=== PATIENT | female | born 1955 | race Caucasian/White ===

== ENCOUNTER 2020-07-09 22:56 | Inpatient (IN) | payer OTHER ==
[2020-07-09 23:02] VITALS: BMI 43.8
[2020-07-09] MEDS ORDERED: LACTATED RINGERS SOLUTION 1000 ML INFUS.BAG IV ONE (23:43)
[2020-07-10 00:13] LABS: VENOUS BASE EXCESS -24.4 mmol/L (-2-2); VENOUS O2 SATURATION 77.2 % (70-80); VENOUS PCO2 44.6 mmHg (38-52)
[2020-07-10 00:20] LABS: BASO % 0.7 % (0-2.0); EOS % 0.1 % (0-4.5); HEMATOCRIT 49.5 % (32.4-45.2); HEMOGLOBIN 15.5 GM/dL (10.7-15.3); LYMPH % 13.6 % (8-40); MCH 27.6 pg (25.7-33.7); MCHC 31.3 g/dl (32.0-36.0); MEAN CELL VOLUME 88.3 fl (80-96); MEAN PLT VOLUME 12.9 fl (7.5-11.1); MONO % 11.2 % (3.8-10.2); NEUT % 74.4 % (42.8-82.8); PLATELET COUNT 148 K/MM3 (134-434); RDW 17.5 % (11.6-15.6); WHITE BLOOD COUNT 8.8 K/mm3 (4.0-10.0)
[2020-07-10 00:33] LABS: VENOUS PH 6.904 (7.310-7.410)
[2020-07-10 00:37] LABS: POTASSIUM 5.2 mmol/L (3.5-5.1)
[2020-07-10 00:39] LABS: ALBUMIN 3.7 g/dl (3.4-5.0); BLOOD UREA NITROGEN 55.3 mg/dL (7-18); CALCIUM 10.2 mg/dL (8.5-10.1)
[2020-07-10 00:44] LABS: BILIRUBIN,TOTAL 0.5 mg/dL (0.2-1); TOT PROT 7.7 g/dl (6.4-8.2)
[2020-07-10] MEDS ORDERED: INSULIN REGULAR HUMAN 100 UNITS/ML *VIAL* (FOR IVP) IVPUSH ONE (00:46)
[2020-07-10] MEDS ORDERED: INSULIN REGULAR HUMAN 100 UNITS/ML *VIAL IVPUSH ONE (00:49)
[2020-07-10] MEDS ORDERED: SODIUM CHLORIDE 0.45%/POT 20 MEQ/1,000 ML INFUS.BAG IV SCH (01:00)
[2020-07-10] MEDS ORDERED: INSULIN REGULAR 100 UNITS in SODIUM CHLORIDE 99 ML IVPB SCH (01:00)
[2020-07-10 02:02] LABS: BLOOD UREA NITROGEN 54.8 mg/dL (7-18); CALCIUM 10.1 mg/dL (8.5-10.1)
[2020-07-10 02:14] LABS: POTASSIUM 5.2 mmol/L (3.5-5.1)
[2020-07-10] MEDS: HEPARIN NA (PORCINE) 5,000 UNITS/ML 1ML VIAL SQ SCH ×3 (06:49→23:02)
[2020-07-10] MEDS ORDERED: DEXTROSE 10%-WATER 500 ML INFUS.BAG IV ONE (07:46)
[2020-07-10 07:50] LABS: BASO % 0.9 % (0-2.0); EOS % 0.2 % (0-4.5); HEMATOCRIT 46.4 % (32.4-45.2); HEMOGLOBIN 15.3 GM/dL (10.7-15.3); LYMPH % 22.4 % (8-40); MCHC 32.9 g/dl (32.0-36.0); MEAN PLT VOLUME 12.5 fl (7.5-11.1); MONO % 13.1 % (3.8-10.2); NEUT % 63.4 % (42.8-82.8); PLATELET COUNT 155 K/MM3 (134-434); RBC 5.46 M/mm3 (3.60-5.2); RDW 16.5 % (11.6-15.6); WHITE BLOOD COUNT 9.8 K/mm3 (4.0-10.0)
[2020-07-10 08:04] LABS: INR 0.95 (0.83-1.09)
[2020-07-10 08:09] LABS: POTASSIUM 4.2 mmol/L (3.5-5.1)
[2020-07-10 08:13] LABS: CALCIUM 10.1 mg/dL (8.5-10.1)
[2020-07-10 08:14] LABS: ALBUMIN 3.6 g/dl (3.4-5.0); BLOOD UREA NITROGEN 55.7 mg/dL (7-18); MAGNESIUM 3.5 mg/dL (1.8-2.4)
[2020-07-10] MEDS: INSULIN REGULAR 100 UNITS in SODIUM CHLORIDE 99 ML IVPB SCH ×4 (08:16→18:41)
[2020-07-10 08:17] LABS: CREATININE 1.8 mg/dL (0.55-1.3); PHOSPHOROUS 1.7 mg/dL (2.5-4.9)
[2020-07-10 08:18] LABS: BILIRUBIN,TOTAL 0.6 mg/dL (0.2-1); TOT PROT 7.2 g/dl (6.4-8.2)
[2020-07-10] MEDS: D5-1/2NS+20 MEQ KCL - 20 MEQ/1,000 ML INFUS.BAG IV SCH ×2 (08:20→18:46)
[2020-07-10 08:33] LABS: ACTIVATED PTT > 400.0 SECONDS (25.2-36.5)
[2020-07-10] MEDS ORDERED: POTASSIUM PHOSPHATE 15 MM in DEXTROSE 5%-WATER - 250 ML IVPB ONE (10:00)
[2020-07-10 10:56] LABS: HEMATOCRIT 48.2 % (32.4-45.2); HEMOGLOBIN 15.6 GM/dL (10.7-15.3); MCH 27.7 pg (25.7-33.7); MCHC 32.3 g/dl (32.0-36.0); MEAN CELL VOLUME 85.7 fl (80-96); MEAN PLT VOLUME 12.3 fl (7.5-11.1); PLATELET COUNT 157 K/MM3 (134-434); RBC 5.63 M/mm3 (3.60-5.2); RDW 16.5 % (11.6-15.6); WHITE BLOOD COUNT 9.1 K/mm3 (4.0-10.0)
[2020-07-10 11:10] LABS: INR 1.07 (0.83-1.09); PROTHROMBIN TIME (PATIENT) 13.1 SEC (9.7-13.0)
[2020-07-10 11:12] LABS: ACTIVATED PTT 24.5 SECONDS (25.2-36.5)
[2020-07-10 11:16] LABS: CHLORIDE 124 mmol/L (98-107); POTASSIUM 4.8 mmol/L (3.5-5.1); SODIUM 160 mmol/L (136-145)
[2020-07-10 11:19] LABS: ALBUMIN 3.6 g/dl (3.4-5.0); ANION GAP 11 MMOL/L (8-16); BLOOD UREA NITROGEN 56.6 mg/dL (7-18); CALCIUM 9.9 mg/dL (8.5-10.1); CO2 25 mmol/L (21-32)
[2020-07-10 11:20] LABS: GLUCOSE,RANDOM 163 mg/dL (74-106); MAGNESIUM 3.4 mg/dL (1.8-2.4)
[2020-07-10 11:22] LABS: BILIRUBIN,DIRECT 0.1 mg/dL (0.0-0.2); SGOT/AST 15 U/L (15-37); SGPT/ALT 14 U/L (13-61)
[2020-07-10 11:23] LABS: CREATININE 1.9 mg/dL (0.55-1.3)
[2020-07-10 11:24] LABS: BILIRUBIN,TOTAL 0.4 mg/dL (0.2-1); TOT PROT 7.4 g/dl (6.4-8.2)
[2020-07-10 11:25] LABS: ALK PHOS 86 U/L (45-117)
[2020-07-10 11:26] LABS: LDH 241 U/L (84-246)
[2020-07-10] MEDS: ONDANSETRON 4 MG/2 ML VIAL IVPUSH PRN (18:46)
[2020-07-10 18:49] LABS: EPI CELLS 29 /uL (0-25.1); HYALINE CASTS 3 /uL (0-3.1); URINE APPEARANCE CLEAR; URINE BACTERIA 1010 /uL (0-1359); URINE BILIRUBIN NEGATIVE (NEGATIVE); URINE COLOR YELLOW; URINE GLUCOSE (UA) 3+ (NEGATIVE); URINE KETONE 1+ (NEGATIVE); URINE LEUK ESTERASE NEGATIVE (NEGATIVE); URINE NITRITE NEGATIVE (NEGATIVE); URINE PROTEIN TRACE (NEGATIVE); URINE RBC 55 /uL (0-23.9); URINE UROBILINOGEN 0.2 mg/dL (0.2-1.0); URINE WBC 26 /uL (0-25.8)
[2020-07-10 19:44] LABS: VENOUS BASE EXCESS -0.2 mmol/L (-2-2); VENOUS PCO2 42.4 mmHg (38-52); VENOUS PH 7.387 (7.310-7.410)
[2020-07-10 20:11] LABS: POTASSIUM 4.7 mmol/L (3.5-5.1)
[2020-07-10 20:12] LABS: CALCIUM 9.1 mg/dL (8.5-10.1)
[2020-07-10 20:13] LABS: BLOOD UREA NITROGEN 53.8 mg/dL (7-18)
[2020-07-10 20:16] LABS: CREATININE 1.8 mg/dL (0.55-1.3)
[2020-07-10] MEDS ORDERED: CHLORHEXIDINE GLUCONATE 4% CLEANSER FOR DECOLONIZATION TP SCH (22:00)
[2020-07-10] MEDS: MUPIROCIN 2% TOPICAL OINTMENT FOR DECOLONIZATION NS SCH (23:02)
[2020-07-11] MEDS: HEPARIN NA (PORCINE) 5,000 UNITS/ML 1ML VIAL SQ SCH ×3 (06:23→21:36)
[2020-07-11] MEDS ORDERED: INSULIN (LEVEMIR) 100 UNITS/ML UNITS SQ ONE (08:42)
[2020-07-11] MEDS: D5-1/2NS+20 MEQ KCL - 20 MEQ/1,000 ML INFUS.BAG IV SCH (09:24)
[2020-07-11] MEDS: INSULIN REGULAR 100 UNITS in SODIUM CHLORIDE 99 ML IVPB SCH (09:25)
[2020-07-11 09:30] LABS: HEMATOCRIT 43.9 % (32.4-45.2); HEMOGLOBIN 14.2 GM/dL (10.7-15.3); MCH 27.8 pg (25.7-33.7); MCHC 32.3 g/dl (32.0-36.0); MEAN CELL VOLUME 86.2 fl (80-96); MEAN PLT VOLUME 11.7 fl (7.5-11.1); PLATELET COUNT 109 K/MM3 (134-434); RBC 5.09 M/mm3 (3.60-5.2); RDW 16.6 % (11.6-15.6); WHITE BLOOD COUNT 7.2 K/mm3 (4.0-10.0)
[2020-07-11 09:42] LABS: POTASSIUM 4.2 mmol/L (3.5-5.1)
[2020-07-11 09:52] LABS: CALCIUM 8.7 mg/dL (8.5-10.1)
[2020-07-11 09:53] LABS: BLOOD UREA NITROGEN 44.4 mg/dL (7-18); MAGNESIUM 2.8 mg/dL (1.8-2.4)
[2020-07-11 09:56] LABS: CREATININE 1.6 mg/dL (0.55-1.3); PHOSPHOROUS 1.2 mg/dL (2.5-4.9)
[2020-07-11] MEDS ORDERED: INSULIN SLIDING SCALE (NOVOLOG) 1 VIAL SQ SCH (11:00)
[2020-07-11] MEDS: MUPIROCIN 2% TOPICAL OINTMENT FOR DECOLONIZATION NS SCH ×2 (12:31→21:36)
[2020-07-11] MEDS: ONDANSETRON 4 MG/2 ML VIAL IVPUSH PRN (14:25)
[2020-07-11] MEDS ORDERED: SODIUM CHLORIDE 0.45% 1,000 ML IV SCH (14:45)
[2020-07-11] MEDS: DEXTROSE 5%-WATER - 1,000 ML IV SCH ×2 (15:14→21:35)
[2020-07-11] MEDS ORDERED: ONDANSETRON 4 MG/2 ML VIAL IVPUSH PRN (15:15)
[2020-07-11] MEDS: INSULIN SLIDING SCALE (NOVOLOG) 1 VIAL SQ SCH ×2 (16:53→21:36)
[2020-07-11] MEDS: INSULIN (LEVEMIR) 100 UNITS/ML UNITS SQ SCH (21:36)
[2020-07-11] MEDS: CHLORHEXIDINE GLUCONATE 4% CLEANSER FOR DECOLONIZATION TP SCH (21:36)
[2020-07-11] MEDS ORDERED: INSULIN (LEVEMIR) 100 UNITS/ML UNITS SQ SCH (22:00)
[2020-07-12] MEDS: DEXTROSE 5%-WATER - 1,000 ML IV SCH (06:13)
[2020-07-12] MEDS: INSULIN SLIDING SCALE (NOVOLOG) 1 VIAL SQ SCH ×4 (06:13→21:25)
[2020-07-12] MEDS: HEPARIN NA (PORCINE) 5,000 UNITS/ML 1ML VIAL SQ SCH (06:14)
[2020-07-12 07:10] LABS: HEMATOCRIT 40.7 % (32.4-45.2); HEMOGLOBIN 13.2 GM/dL (10.7-15.3); MCHC 32.5 g/dl (32.0-36.0); MEAN CELL VOLUME 86.1 fl (80-96); MEAN PLT VOLUME 11.7 fl (7.5-11.1); PLATELET COUNT 84 K/MM3 (134-434); RBC 4.72 M/mm3 (3.60-5.2); RDW 16.5 % (11.6-15.6); WHITE BLOOD COUNT 6.3 K/mm3 (4.0-10.0)
[2020-07-12 07:21] LABS: POTASSIUM 3.8 mmol/L (3.5-5.1)
[2020-07-12 07:26] LABS: CALCIUM 8.2 mg/dL (8.5-10.1)
[2020-07-12 07:27] LABS: ALBUMIN 2.8 g/dl (3.4-5.0); BLOOD UREA NITROGEN 30.5 mg/dL (7-18); MAGNESIUM 2.5 mg/dL (1.8-2.4)
[2020-07-12 07:30] LABS: CREATININE 1.2 mg/dL (0.55-1.3); PHOSPHOROUS 2.2 mg/dL (2.5-4.9)
[2020-07-12 07:31] LABS: BILIRUBIN,TOTAL 0.7 mg/dL (0.2-1); TOT PROT 5.9 g/dl (6.4-8.2)
[2020-07-12] MEDS: MUPIROCIN 2% TOPICAL OINTMENT FOR DECOLONIZATION NS SCH ×2 (09:07→21:20)
[2020-07-12] MEDS ORDERED: LACTATED RINGERS SOLUTION 1,000 ML/1,000 ML INFUS.BAG IV SCH (14:00)
[2020-07-12] MEDS ORDERED: SODIUM CHLORIDE 0.45% 1,000 ML IV SCH (14:15)
[2020-07-12] MEDS: SODIUM CHLORIDE 0.45% 1,000 ML IV SCH (16:37)
[2020-07-12] MEDS: CHLORHEXIDINE GLUCONATE 4% CLEANSER FOR DECOLONIZATION TP SCH (21:20)
[2020-07-12] MEDS: INSULIN (LEVEMIR) 100 UNITS/ML UNITS SQ SCH (21:24)
[2020-07-13 01:43] LABS: POTASSIUM 3.6 mmol/L (3.5-5.1)
[2020-07-13 01:46] LABS: ALBUMIN 2.7 g/dl (3.4-5.0); BLOOD UREA NITROGEN 20.8 mg/dL (7-18); CALCIUM 8.1 mg/dL (8.5-10.1)
[2020-07-13] MEDS: SODIUM CHLORIDE 0.45% 1,000 ML IV SCH ×2 (01:46→21:29)
[2020-07-13 01:50] LABS: BILIRUBIN,TOTAL 0.6 mg/dL (0.2-1); TOT PROT 5.6 g/dl (6.4-8.2)
[2020-07-13] MEDS: INSULIN SLIDING SCALE (NOVOLOG) 1 VIAL SQ SCH (06:49)
[2020-07-13] MEDS ORDERED: TRIMETHOBENZAMIDE HCL 300 MG CAPSULE PO PRN (07:50)
[2020-07-13 10:11] LABS: BASO % 0.6 % (0-2.0); EOS % 4.9 % (0-4.5); HEMATOCRIT 42.7 % (32.4-45.2); HEMOGLOBIN 13.9 GM/dL (10.7-15.3); LYMPH % 33.8 % (8-40); MCHC 32.5 g/dl (32.0-36.0); MEAN CELL VOLUME 86.2 fl (80-96); MEAN PLT VOLUME 11.9 fl (7.5-11.1); MONO % 13.5 % (3.8-10.2); NEUT % 47.2 % (42.8-82.8); PLATELET COUNT 84 K/MM3 (134-434); RBC 4.96 M/mm3 (3.60-5.2); RDW 16.5 % (11.6-15.6); WHITE BLOOD COUNT 4.8 K/mm3 (4.0-10.0)
[2020-07-13 10:24] LABS: POTASSIUM 4.5 mmol/L (3.5-5.1)
[2020-07-13 10:33] LABS: CALCIUM 8.6 mg/dL (8.5-10.1)
[2020-07-13 10:34] LABS: ALBUMIN 2.9 g/dl (3.4-5.0); BLOOD UREA NITROGEN 17.1 mg/dL (7-18)
[2020-07-13] MEDS: INSULIN (LEVEMIR) 100 UNITS/ML UNITS SQ SCH ×2 (10:34→21:35)
[2020-07-13] MEDS: MUPIROCIN 2% TOPICAL OINTMENT FOR DECOLONIZATION NS SCH ×2 (10:34→21:30)
[2020-07-13 10:38] LABS: BILIRUBIN,TOTAL 0.9 mg/dL (0.2-1); TOT PROT 6.3 g/dl (6.4-8.2)
[2020-07-13 11:06] LABS: PLATELET ESTIMATE DECREASED
[2020-07-13] MEDS: DOCUSATE SODIUM 100 MG CAPSULE (FP) PO SCH ×2 (14:18→21:34)
[2020-07-13] MEDS: CHLORHEXIDINE GLUCONATE 4% CLEANSER FOR DECOLONIZATION TP SCH (21:30)
[2020-07-13] MEDS: SENNOSIDES 8.6MG TABLET (FP) PO SCH (21:34)
[2020-07-14] MEDS: INSULIN (LEVEMIR) 100 UNITS/ML UNITS SQ SCH (06:12)
[2020-07-14 06:35] LABS: BASO % 0.5 % (0-2.0); EOS % 4.6 % (0-4.5); HEMOGLOBIN 13.1 GM/dL (10.7-15.3); LYMPH % 31.9 % (8-40); MCH 27.8 pg (25.7-33.7); MCHC 31.9 g/dl (32.0-36.0); MEAN PLT VOLUME 11.7 fl (7.5-11.1); MONO % 13.6 % (3.8-10.2); NEUT % 49.4 % (42.8-82.8); PLATELET COUNT 64 K/MM3 (134-434); RBC 4.71 M/mm3 (3.60-5.2); RDW 16.1 % (11.6-15.6); WHITE BLOOD COUNT 4.4 K/mm3 (4.0-10.0)
[2020-07-14 06:46] LABS: POTASSIUM 3.9 mmol/L (3.5-5.1)
[2020-07-14 06:50] LABS: BLOOD UREA NITROGEN 15.5 mg/dL (7-18); CALCIUM 8.3 mg/dL (8.5-10.1); MAGNESIUM 2.2 mg/dL (1.8-2.4)
[2020-07-14 06:53] LABS: CREATININE 0.8 mg/dL (0.55-1.3); PHOSPHOROUS 2.5 mg/dL (2.5-4.9)
[2020-07-14] MEDS: MUPIROCIN 2% TOPICAL OINTMENT FOR DECOLONIZATION NS SCH ×2 (09:11→21:12)
[2020-07-14] MEDS: DOCUSATE SODIUM 100 MG CAPSULE (FP) PO SCH ×2 (10:41→21:11)
[2020-07-14] MEDS: MULTIVITAMINS (DAILY MVI) TABLET (FP) PO SCH (10:41)
[2020-07-14] MEDS: SODIUM CHLORIDE 0.45% 1,000 ML IV SCH (20:15)
[2020-07-14] MEDS: CHLORHEXIDINE GLUCONATE 4% CLEANSER FOR DECOLONIZATION TP SCH (21:12)
[2020-07-14] MEDS: ATORVASTATIN CA 20 MG TABLET (FP) PO SCH (21:12)
[2020-07-14] MEDS: INSULIN SLIDING SCALE (NOVOLOG) 1 VIAL SQ SCH (21:12)
[2020-07-14] MEDS: SENNOSIDES 8.6MG TABLET (FP) PO SCH (21:17)
[2020-07-15] MEDS: INSULIN SLIDING SCALE (NOVOLOG) 1 VIAL SQ SCH ×4 (06:20→21:24)
[2020-07-15] MEDS: LEVOTHYROXINE NA 25 MCG TABLET (FP) PO SCH (06:21)
[2020-07-15] MEDS: metFORMIN HCL 500 MG TABLET (FP) PO SCH ×2 (06:21→18:15)
[2020-07-15] MEDS: INSULIN (NOVOLOG MIX 70/30) 100 UNITS/ML MDV SQ SCH ×2 (06:21→18:15)
[2020-07-15 07:00] LABS: POTASSIUM 3.8 mmol/L (3.5-5.1)
[2020-07-15 07:02] LABS: CALCIUM 8.4 mg/dL (8.5-10.1)
[2020-07-15 07:06] LABS: CREATININE 0.9 mg/dL (0.55-1.3)
[2020-07-15 07:11] LABS: BLOOD UREA NITROGEN 13.2 mg/dL (7-18)
[2020-07-15 07:18] LABS: HEMATOCRIT 42.9 % (32.4-45.2); MCH 28.1 pg (25.7-33.7); MCHC 32.6 g/dl (32.0-36.0); MEAN CELL VOLUME 86.2 fl (80-96); MEAN PLT VOLUME 11.4 fl (7.5-11.1); PLATELET COUNT 83 K/MM3 (134-434); RBC 4.98 M/mm3 (3.60-5.2); RDW 16.2 % (11.6-15.6); WHITE BLOOD COUNT 5.7 K/mm3 (4.0-10.0)
[2020-07-15] MEDS: PANTOPRAZOLE 40 MG TABLET PO SCH (09:56)
[2020-07-15] MEDS: DOCUSATE SODIUM 100 MG CAPSULE (FP) PO SCH ×2 (09:56→21:24)
[2020-07-15] MEDS: MULTIVITAMINS (DAILY MVI) TABLET (FP) PO SCH (09:56)
[2020-07-15] MEDS: SODIUM CHLORIDE 0.45% 1,000 ML IV SCH ×2 (19:08→19:12)
[2020-07-15] MEDS: ATORVASTATIN CA 20 MG TABLET (FP) PO SCH (21:23)
[2020-07-15] MEDS: SENNOSIDES 8.6MG TABLET (FP) PO SCH (21:24)
[2020-07-16] MEDS: LEVOTHYROXINE NA 25 MCG TABLET (FP) PO SCH (06:56)
[2020-07-16] MEDS: metFORMIN HCL 500 MG TABLET (FP) PO SCH ×2 (06:56→16:27)
[2020-07-16] MEDS: INSULIN SLIDING SCALE (NOVOLOG) 1 VIAL SQ SCH ×3 (06:56→16:28)
[2020-07-16] MEDS: INSULIN (NOVOLOG MIX 70/30) 100 UNITS/ML MDV SQ SCH ×2 (06:57→16:34)
[2020-07-16 08:19] LABS: HEMATOCRIT 42.8 % (32.4-45.2); HEMOGLOBIN 14.2 GM/dL (10.7-15.3); MCH 28.3 pg (25.7-33.7); MCHC 33.2 g/dl (32.0-36.0); MEAN CELL VOLUME 85.2 fl (80-96); MEAN PLT VOLUME 11.3 fl (7.5-11.1); PLATELET COUNT 86 K/MM3 (134-434); RBC 5.02 M/mm3 (3.60-5.2); WHITE BLOOD COUNT 6.1 K/mm3 (4.0-10.0)
[2020-07-16 08:40] LABS: POTASSIUM 3.7 mmol/L (3.5-5.1)
[2020-07-16 08:44] LABS: CALCIUM 8.7 mg/dL (8.5-10.1)
[2020-07-16 08:45] LABS: BLOOD UREA NITROGEN 15.1 mg/dL (7-18)
[2020-07-16 08:48] LABS: CREATININE 0.9 mg/dL (0.55-1.3)
[2020-07-16] MEDS ORDERED: ENOXAPARIN NA (PORCINE) 40 MG/0.4 ML DISP.SYRIN SQ SCH (10:00)
[2020-07-16] MEDS: PANTOPRAZOLE 40 MG TABLET PO SCH (10:17)
[2020-07-16] MEDS: DOCUSATE SODIUM 100 MG CAPSULE (FP) PO SCH (10:17)
[2020-07-16] MEDS: MULTIVITAMINS (DAILY MVI) TABLET (FP) PO SCH (10:17)
[2020-07-16 14:00] VITALS: BP 120/68; PULSE 75; TEMP 99.1
== END 2020-07-16 20:00 | disposition home or self-care (01) | DRG 420 ==
LOC: JER 22:56 → JERBED 07-10 01:40 → JICU-6 07-10 07:31 → J7W 07-11 11:45
PROVIDERS: ADMIT Internal Medicine Pulmonary Disease; ATTEND Internal Medicine
DX: E11.10 Type 2 diabetes mellitus with ketoacidosis without coma (principal); E87.0 Hyperosmolality and hypernatremia; D69.6 Thrombocytopenia, unspecified; E78.5 Hyperlipidemia, unspecified; E03.9 Hypothyroidism, unspecified; E66.01 Morbid (severe) obesity due to excess calories; Z68.41 Body mass index [BMI] 40.0-44.9, adult; N17.9 Acute kidney failure, unspecified; E87.6 Hypokalemia; E87.2 Acidosis
CPT/HCPCS: 36415; 71045-TC-FY; 76700-TC; 76775-TC; 80048; 80053; 80061; 80076; 81003; 82010; 82550; 82553; 82565; 82607; 82728; 82803; 82962; 83036; 83605; 83615; 83721; 83735; 84100; 84156; 84252; 84300; 84439; 84443; 84484; 85025; 85027; 85379; 85610; 85730; 86022; 86140; 87086; 87205; 87804; 93005; 93010; 99285-25; C9803; J1644; J3480; U0003

== ENCOUNTER 2020-12-28 16:20 | Inpatient (IN) | payer OTHER ==
[2020-12-28] MEDS ORDERED: SODIUM CHLORIDE 0.9% 500 ML INFUS.BAG IV ONE (19:26)
[2020-12-28] MEDS ORDERED: ACETAMINOPHEN 1000 MG/100 ML VIAL (NON FORMULARY) IVPB ONE (19:27)
[2020-12-28] MEDS ORDERED: METOCLOPRAMIDE HCL INJECTION 10 MG/2 ML VIAL IVPUSH ONE (19:27)
[2020-12-28] MEDS ORDERED: METOCLOPRAMIDE HCL INJECTION 10 MG/2 ML VIAL ONE (19:41)
[2020-12-28] MEDS ORDERED: ACETAMINOPHEN INJECTION 100 ML IVPB ONE (19:41)
[2020-12-28 20:16] LABS: BASO % 0.2 % (0-2.0); EOS % 8.9 % (0-4.5); HEMATOCRIT 40.8 % (32.4-45.2); HEMOGLOBIN 13.5 GM/dL (10.7-15.3); LYMPH % 23.1 % (8-40); MCH 27.6 pg (25.7-33.7); MCHC 33.1 g/dl (32.0-36.0); MEAN CELL VOLUME 83.4 fl (80-96); MEAN PLT VOLUME 10.8 fl (7.5-11.1); MONO % 6.9 % (3.8-10.2); NEUT % 60.9 % (42.8-82.8); PLATELET COUNT 194 10^3/uL (134-434); WHITE BLOOD COUNT 8.5 K/mm3 (4.0-10.0)
[2020-12-28 20:31] LABS: CHLORIDE 110 mmol/L (98-107); SODIUM 145 mmol/L (136-145)
[2020-12-28 20:33] LABS: ANION GAP 11 MMOL/L (8-16); BLOOD UREA NITROGEN 42.5 mg/dL (7-18); CALCIUM 9.8 mg/dL (8.5-10.1); CO2 25 mmol/L (21-32); GLUCOSE,RANDOM 72 mg/dL (74-106)
[2020-12-28 20:34] LABS: ALBUMIN 3.4 g/dl (3.4-5.0); LIPASE 165 U/L (73-393)
[2020-12-28 20:37] LABS: CREATININE 3.6 mg/dL (0.55-1.3); SGOT/AST 345 U/L (15-37); SGPT/ALT 326 U/L (13-61)
[2020-12-28 20:38] LABS: BILIRUBIN,TOTAL 1.6 mg/dL (0.2-1); TOT PROT 7.7 g/dl (6.4-8.2)
[2020-12-28 20:57] LABS: ALK PHOS 1146 U/L (45-117)
[2020-12-28 23:09] LABS: EPI CELLS >36 /uL (0-25.1); HYALINE CASTS 9 /uL (0-3.1); URINE APPEARANCE TURBID; URINE BILIRUBIN 3+ (NEGATIVE); URINE COLOR DK YELLOW; URINE GLUCOSE (UA) NEGATIVE (NEGATIVE); URINE KETONE TRACE (NEGATIVE); URINE LEUK ESTERASE 3+ (NEGATIVE); URINE NITRITE POSITIVE (NEGATIVE); URINE PROTEIN 2+ (NEGATIVE); URINE RBC 3 /uL (0-23.9); URINE WBC 4042 /uL (0-25.8)
[2020-12-28] MEDS ORDERED: CEFTRIAXONE 1,000 MG in DEXTROSE 5%-WATER - 50 ML IVPB ONE (23:10)
[2020-12-28] MEDS ORDERED: CEFTRIAXONE 1 GM/50 ML BAG ONE (23:50)
[2020-12-29 00:10] LABS: URINE BACTERIA 194.7 /uL (0-1359)
[2020-12-29 00:11] LABS: URINE CRYSTALS NONE SEEN /hpf
[2020-12-29 05:31] VITALS: BMI 37.5
[2020-12-29] MEDS: LEVOTHYROXINE NA 88 MCG TABLET (FP) PO SCH (06:01)
[2020-12-29] MEDS: SODIUM CHLORIDE 1,000 ML IV SCH ×2 (06:01→19:46)
[2020-12-29] MEDS: HEPARIN NA (PORCINE) 5,000 UNITS/ML 1ML VIAL SQ SCH ×3 (06:01→22:19)
[2020-12-29] MEDS: INSULIN SLIDING SCALE (NOVOLOG) 1 VIAL SQ SCH ×3 (06:02→17:05)
[2020-12-29] MEDS ORDERED: DEXTROSE 5%-WATER - 50 ML IVPB ONE (08:40)
[2020-12-29] MEDS ORDERED: cefTRIAXone SODIUM 1 GM VIAL ONE (08:40)
[2020-12-29] MEDS: PANTOPRAZOLE 40 MG TABLET PO SCH (09:05)
[2020-12-29 09:09] LABS: BASO % 1.3 % (0-2.0); EOS % 12.4 % (0-4.5); HEMATOCRIT 34.5 % (32.4-45.2); HEMOGLOBIN 11.4 GM/dL (10.7-15.3); MCH 27.5 pg (25.7-33.7); MCHC 33.1 g/dl (32.0-36.0); MEAN PLT VOLUME 10.9 fl (7.5-11.1); MONO % 9.1 % (3.8-10.2); NEUT % 59.2 % (42.8-82.8); PLATELET COUNT 142 10^3/uL (134-434); RBC 4.16 M/mm3 (3.60-5.2); RDW 16.2 % (11.6-15.6); WHITE BLOOD COUNT 6.4 K/mm3 (4.0-10.0)
[2020-12-29 09:23] LABS: ALBUMIN 2.9 g/dl (3.4-5.0); BLOOD UREA NITROGEN 44.7 mg/dL (7-18); CALCIUM 9.3 mg/dL (8.5-10.1)
[2020-12-29 09:24] LABS: MAGNESIUM 2.2 mg/dL (1.8-2.4)
[2020-12-29 09:27] LABS: BILIRUBIN,TOTAL 1.5 mg/dL (0.2-1); PHOSPHOROUS 4.3 mg/dL (2.5-4.9); TOT PROT 6.5 g/dl (6.4-8.2)
[2020-12-29 09:30] LABS: CHOLESTEROL 185 mg/dL (50-200); LDL CHOLESTEROL (ONLY SJRH) 89 mg/dL (5-100); TRIGLYCERIDES 52 mg/dL (0-150)
[2020-12-29 09:32] LABS: HDL CHOLESTEROL 65 mg/dL (40-60)
[2020-12-29] MEDS ORDERED: HEPARIN NA (PORCINE) 5,000 UNITS/ML 1ML VIAL SQ SCH (10:00)
[2020-12-29] MEDS ORDERED: CEFTRIAXONE 1 GM in DEXTROSE 5%-WATER - 50 ML IVPB ONE (10:00)
[2020-12-29] MEDS ORDERED: PT OWN MED DRAWER 7, Y5N ONE ×2 (10:18→19:45)
[2020-12-29 11:54] LABS: EPI CELLS 35 /uL (0-25.1); HYALINE CASTS 28 /uL (0-3.1); URINE APPEARANCE CLOUDY; URINE BACTERIA 34 /uL (0-1359); URINE BILIRUBIN 2+ (NEGATIVE); URINE COLOR DK YELLOW; URINE GLUCOSE (UA) NEGATIVE (NEGATIVE); URINE KETONE TRACE (NEGATIVE); URINE LEUK ESTERASE 2+ (NEGATIVE); URINE NITRITE NEGATIVE (NEGATIVE); URINE PROTEIN 1+ (NEGATIVE); URINE RBC 32 /uL (0-23.9); URINE WBC 353 /uL (0-25.8)
[2020-12-30] MEDS: SODIUM CHLORIDE 1,000 ML IV SCH (05:14)
[2020-12-30] MEDS: HEPARIN NA (PORCINE) 5,000 UNITS/ML 1ML VIAL SQ SCH ×3 (06:22→21:34)
[2020-12-30] MEDS: LEVOTHYROXINE NA 88 MCG TABLET (FP) PO SCH (06:22)
[2020-12-30] MEDS: INSULIN SLIDING SCALE (NOVOLOG) 1 VIAL SQ SCH ×3 (06:28→17:27)
[2020-12-30 08:40] LABS: BASO % 1.2 % (0-2.0); EOS % 15.8 % (0-4.5); HEMATOCRIT 36.8 % (32.4-45.2); HEMOGLOBIN 11.9 GM/dL (10.7-15.3); LYMPH % 25.9 % (8-40); MCH 27.1 pg (25.7-33.7); MCHC 32.4 g/dl (32.0-36.0); MEAN CELL VOLUME 83.8 fl (80-96); MONO % 9.5 % (3.8-10.2); NEUT % 47.6 % (42.8-82.8); PLATELET COUNT 156 10^3/uL (134-434); RBC 4.39 M/mm3 (3.60-5.2); RDW 16.2 % (11.6-15.6); WHITE BLOOD COUNT 6.3 K/mm3 (4.0-10.0)
[2020-12-30 09:06] LABS: BLOOD UREA NITROGEN 31.2 mg/dL (7-18); CALCIUM 9.3 mg/dL (8.5-10.1)
[2020-12-30 09:08] LABS: ALBUMIN 2.9 g/dl (3.4-5.0)
[2020-12-30 09:10] LABS: CREATININE 1.4 mg/dL (0.55-1.3); PHOSPHOROUS 2.8 mg/dL (2.5-4.9)
[2020-12-30 09:11] LABS: BILIRUBIN,TOTAL 1.7 mg/dL (0.2-1); TOT PROT 6.7 g/dl (6.4-8.2)
[2020-12-30] MEDS: PANTOPRAZOLE 40 MG TABLET PO SCH (10:13)
[2020-12-30 11:08] LABS: HEP B CORE AB, TOT Negative (Negative)
[2020-12-30] MEDS ORDERED: diazePAM 5 MG TABLET PO ONE ×2 (11:30→18:45)
[2020-12-30 13:10] LABS: ALBUMIN 3.1 g/dl (3.4-5.0)
[2020-12-30 13:13] LABS: BILIRUBIN,DIRECT 1.4 mg/dL (0.0-0.2)
[2020-12-30 13:16] LABS: BILIRUBIN,TOTAL 1.9 mg/dL (0.2-1); TOT PROT 7.2 g/dl (6.4-8.2)
[2020-12-30] MEDS ORDERED: PIPERACILLIN/TAZOBACTAM 3.375 GM VIAL IVPB ONE (17:07)
[2020-12-30] MEDS ORDERED: DEXTROSE 5%-WATER - 50 ML IVPB ONE (17:07)
[2020-12-30] MEDS: SODIUM CHLORIDE 0.45% 1,000 ML IV SCH (17:10)
[2020-12-30] MEDS: PIPERACILLIN/TAZOB 3.375 GM 3.375 GM in DEXTROSE 5%-WATER - 50 ML IVPB SCH (17:13)
[2020-12-31] MEDS: PIPERACILLIN/TAZOB 3.375 GM 3.375 GM in DEXTROSE 5%-WATER - 50 ML IVPB SCH ×3 (02:01→18:49)
[2020-12-31] MEDS ORDERED: DEXTROSE 5%-WATER - 50 ML IVPB ONE ×3 (02:34→18:31)
[2020-12-31] MEDS ORDERED: PIPERACILLIN/TAZOBACTAM 3.375 GM VIAL IVPB ONE ×3 (02:34→18:31)
[2020-12-31] MEDS: SODIUM CHLORIDE 0.45% 1,000 ML IV SCH ×3 (05:59→17:56)
[2020-12-31] MEDS: LEVOTHYROXINE NA 88 MCG TABLET (FP) PO SCH (05:59)
[2020-12-31] MEDS: INSULIN SLIDING SCALE (NOVOLOG) 1 VIAL SQ SCH ×3 (05:59→17:15)
[2020-12-31 09:39] LABS: EOS % 13.8 % (0-4.5); HEMATOCRIT 36.5 % (32.4-45.2); HEMOGLOBIN 12.2 GM/dL (10.7-15.3); LYMPH % 24.7 % (8-40); MCH 27.8 pg (25.7-33.7); MCHC 33.3 g/dl (32.0-36.0); MEAN CELL VOLUME 83.6 fl (80-96); MEAN PLT VOLUME 11.9 fl (7.5-11.1); MONO % 8.1 % (3.8-10.2); NEUT % 52.4 % (42.8-82.8); PLATELET COUNT 138 10^3/uL (134-434); RBC 4.37 M/mm3 (3.60-5.2); WHITE BLOOD COUNT 6.5 K/mm3 (4.0-10.0)
[2020-12-31 10:15] LABS: ALBUMIN 2.9 g/dl (3.4-5.0); BILIRUBIN,TOTAL 1.8 mg/dL (0.2-1); BLOOD UREA NITROGEN 23.8 mg/dL (7-18); CALCIUM 9.1 mg/dL (8.5-10.1); CREATININE 1.4 mg/dL (0.55-1.3); MAGNESIUM 1.9 mg/dL (1.8-2.4); PHOSPHOROUS 2.8 mg/dL (2.5-4.9); TOT PROT 6.9 g/dl (6.4-8.2)
[2020-12-31 11:33] LABS: INR 1.09 (0.83-1.09); PROTHROMBIN TIME (PATIENT) 13.1 SEC (9.7-13.0)
[2020-12-31 15:05] VITALS: BP 114/50; PULSE 60; TEMP 98.2
[2020-12-31] MEDS ORDERED: PIPERACILLIN/TAZOB 3.375 GM 3.375 GM in DEXTROSE 5%-WATER - 50 ML IVPB SCH (18:15)
== END 2020-12-31 22:18 | disposition short-term general hospital (02) | DRG 683 ==
LOC: JER 16:20 → JERBED 23:19 → J8W 12-29 04:50
PROVIDERS: ADMIT Internal Medicine; ATTEND Internal Medicine
DX: N17.9 Acute kidney failure, unspecified (principal); N39.0 Urinary tract infection, site not specified; R74.01 Elevation of levels of liver transaminase levels; I10 Essential (primary) hypertension; E03.9 Hypothyroidism, unspecified; E78.5 Hyperlipidemia, unspecified; T38.3X5A Adverse effect of insulin and oral hypoglycemic [antidiabetic] drugs, initial encounter; K76.0 Fatty (change of) liver, not elsewhere classified; E11.649 Type 2 diabetes mellitus with hypoglycemia without coma; K21.9 Gastro-esophageal reflux disease without esophagitis; E66.9 Obesity, unspecified; Z68.37 Body mass index [BMI] 37.0-37.9, adult
CPT/HCPCS: 36415; 70450-TC; 71046-TC-FY; 74176-TC; 76705-TC; 76775-TC; 80053; 80061; 80076; 81003; 82043; 82150; 82436; 82550; 82570; 82962; 82977; 83516; 83540; 83550; 83690; 83721; 83735; 84100; 84133; 84156; 84300; 84436; 84443; 84484; 85025; 85610; 86038; 86140; 86704; 86706; 86707; 86708; 86709; 86850; 86900; 86901; 87077; 87086; 87340; 87522; 93005; 93010; 93306-TC; 99285-25; C9803; J0131; J1644; U0003; U0005